=== PATIENT | female | born 1945 | race Two or more races ===

== ENCOUNTER → 2017-08-05 | Outpatient (CLI) | payer OTHER ==
[~2017-08-05] MED LIST: CALTRATE 600 W-1 TAB PO; HYZAAR 50-12.1 UDTAB PO
== END | disposition home or self-care (01) ==
LOC: RAD 501 09:31
DX: M77.31 Calcaneal spur, right foot (principal); M77.32 Calcaneal spur, left foot

== ENCOUNTER → 2021-09-14 08:05 | Outpatient (CLI) | payer OTHER | END | disposition home or self-care (01) | LOC: NUCLEAR 08-10 08:30 | PROVIDERS: ATTEND Internal Medicine Cardiovascular Disease | DX: I20.9 Angina pectoris, unspecified (principal) ==

== ENCOUNTER → 2022-08-06 10:49 | Outpatient (CLI) | payer OTHER | END | disposition home or self-care (01) | LOC: EKG 10:49 → LAB 10:49 | DX: I10 Essential (primary) hypertension (principal); D64.9 Anemia, unspecified; D68.8 Other specified coagulation defects ==